=== PATIENT | female | born 1950 | race Caucasian/White ===

== ENCOUNTER 2016-12-13 11:27 | Emergency (ER) | payer MEDICARE, OTHER ==
[~2016-12-13] VITALS: Ht 157.5 cm; Wt 51.4 kg
[~2016-12-13 11:27] MED LIST: CALC400T6 PO; CITA20TA5 PO; DONE5TAB52 PO; FLUT1DIS IH; LEVO100T5 PO; LEVO88TA4 PO; PENT100C2 PO
[2016-12-13 11:32] VITALS: BP 136/88
== END 2016-12-13 12:18 | disposition home or self-care (01) ==
LOC: ED 12:00
DX: L24.3 Irritant contact dermatitis due to cosmetics (principal); E03.9 Hypothyroidism, unspecified; J45.909 Unspecified asthma, uncomplicated
CPT/HCPCS: 99283